=== PATIENT | female | born 1955 | race Caucasian/White ===

== ENCOUNTER 2021-11-03 08:28 | Emergency (ER) | payer OTHER ==
[~2021-11-03] VITALS: Ht 165.1 cm; Wt 65.8 kg
[2021-11-03] MEDS ORDERED: METOPROLOL SUCC50 MG PO (08:44)
[2021-11-03] MEDS ORDERED: FLUOXETINE HCL20 MG PO (08:44)
[2021-11-03] MEDS ORDERED: SIMVASTATIN20 MG PO (08:44)
[2021-11-03] MEDS ORDERED: CLONAZEPAM1 MG PO (08:44)
[2021-11-03] MEDS ORDERED: CLINDAMYCIN HC300 MG PO (10:36)
== END 2021-11-03 11:39 | disposition home or self-care (01) ==
LOC: ER 08:28
DX: S51.812A Laceration without foreign body of left forearm, initial encounter (principal); W25.XXXA Contact with sharp glass, initial encounter; Y93.G1 Activity, food preparation and clean up; Y92.010 Kitchen of single-family (private) house as the place of occurrence of the external cause; Y99.9 Unspecified external cause status; I10 Essential (primary) hypertension; Z88.0 Allergy status to penicillin; Z88.8 Allergy status to other drugs, medicaments and biological substances

== ENCOUNTER 2021-11-13 08:55 | Emergency (ER) | payer OTHER ==
[~2021-11-13] VITALS: Ht 165.1 cm; Wt 66.2 kg
[~2021-11-13 08:55] MED LIST: CLINDAMYCIN HC300 MG PO; CLONAZEPAM1 MG PO; FLUOXETINE HCL20 MG PO; METOPROLOL SUCC50 MG PO; SIMVASTATIN20 MG PO
== END 2021-11-13 09:56 | disposition home or self-care (01) ==
LOC: ER 08:55
DX: Z48.02 Encounter for removal of sutures (principal)

== ENCOUNTER 2022-06-07 08:47 | Outpatient (CLI) | payer OTHER | END 2022-06-07 08:52 | disposition home or self-care (01) | LOC: RAD 08:47 | DX: M25.579 Pain in unspecified ankle and joints of unspecified foot (principal) ==

== ENCOUNTER 2022-08-12 08:31 | Outpatient (CLI) | payer OTHER | END 2022-08-12 08:33 | disposition home or self-care (01) | LOC: SONOGRAMA 08:31 | PROVIDERS: ATTEND Internal Medicine Cardiovascular Disease | DX: M19.022 Primary osteoarthritis, left elbow (principal) ==